=== PATIENT | male | born 1980 | race Caucasian/White ===

== ENCOUNTER 2017-05-14 12:43 | Emergency (ER) | payer BC ==
[~2017-05-14] VITALS: Ht 180.3 cm; Wt 89.8 kg
[2017-05-14] MEDS ORDERED: BALSALAZIDE DI750 M1 PO (12:55)
[2017-05-14 13:41] LABS: ABSOLUTE BASOPHILS 0.1 thou/uL (0.0-0.2); ABSOLUTE LYMPHOCYTES 0.8 thou/uL (0.8-5.3); ABSOLUTE MONOCYTES 0.4 thou/uL (0.0-1.2); ABSOLUTE NEUTROPHILS 4.2 thou/uL (1.6-8.1); BASOPHILS 1.2 %; EOSINOPHILS 0.7 %; HEMATOCRIT 49.6 % (42.0-52.0); HEMOGLOBIN 16.5 gm/dL (14.0-18.0); LYMPHOCYTES 14.8 %; MCH 27.9 pg (26.0-34.0); MCHC 33.2 g/dL (28.0-37.0); MCV 83.9 fL (80.0-100.0); MONOCYTES 7.8 %; NUCLEATED RBCS 0 /100WBC; PLATELET COUNT* 226 thou/uL (150-400); POLYS 75.5 %; RBC 5.92 mil/uL (4.50-6.00); RDW-CV 12.6 % (10.5-14.5); WBC 5.6 thou/uL (4.0-11.0)
[2017-05-14 13:46] LABS: CALCIUM 9.2 mg/dL (8.5-10.1); CREATININE 1.4 mg/dL (0.6-1.3); POTASSIUM 4.8 mmol/L (3.5-5.1)
[2017-05-14 13:51] LABS: ALBUMIN 4.4 g/dL (3.4-5.0); TOTAL BILIRUBIN 0.5 mg/dL (<0.1-1.0); TOTAL PROTEIN 8.5 g/dL (6.4-8.2)
[2017-05-14] MEDS ORDERED: PREDNISONE 10 M10 MG PO (14:58)
[2017-05-14] MEDS ORDERED: AUGMENTIN 875-1 EACH PO (14:58)
[2017-05-14 15:49] VITALS: BP 117/90
== END 2017-05-14 15:49 | disposition home or self-care (01) ==
LOC: M.ERS 12:43
PROVIDERS: Physician Assistant
DX: K11.8 Other diseases of salivary glands (principal)